=== PATIENT | female | born 1950 | race Caucasian/White ===

== ENCOUNTER → 2018-12-28 | Outpatient (CLI) | payer OTHER ==
--- NOTE | 2018-12-29 16:06 | PATHOLOGY ---
[facility] Accession Number: [id number] . 01 Material submitted: . breast - LEFT BREAST MASS, 10:00, 7CMFN. Modifiers: left, 10:00 . 01 Clinical history: . Left breast mass . 02 Diagnosis: Breast tissue, left breast mass 10:00 needle biopsies: . Fibrocystic changes with the following components: - Cystic change. - Apocrine metaplasia, focally papillary. - Mild duct ectasia, focal. - Stromal fibrosis. LBQ/12/29/2018 . 02 Comment: There is no evidence of malignancy. Please correlate with mammographic findings. (JPM/db; 12/29/2018) . 02 Electronically signed: . Jose Raul Mazariegos MD, Pathologist NPI- [id number] . 01 Gross description: . The specimen is received in formalin, labeled "Xiao Palencia, left breast mass, 10:00, 7 cm from nipple (6 mm)", are few fibrofatty cores and its fragments measuring 1.2 x 0.7 x 0.4 cm in aggregate. The specimen is entirely submitted in A1-A3. Specimen excised at: 1000 on 12/28/18, placed in formalin at: 1000 on 12/25/18, formalin exposure: Approximately 13 hours and 40 minutes. ([facility]; 12/28/2018) SHS/SHS . 02 Pathologist provided ICD-10: N60.12, N60.42, N60.32 . 02 CPT . 744934 Specimen Comment: A courtesy copy of this report has been sent to Specimen Comment: [phone], . Specimen Comment: Report sent to / DR MCINTOSH Performed at: 01 [facility] [place] [id number] [facility] [address], [place], [place] [id number] MD Moshe Velásquez MD Phone: [phone] Performed at: 02 [facility] [address] [place], [place] [id number] MD Jose Raul Mazariegos MD Phone: [phone]
--- NOTE | 2019-01-04 09:17 | RAD ---
Ultrasound-guided left breast biopsy, 12/28/2018: HISTORY: Suspicious left breast nodule Previous studies demonstrated a suspicious nodule at the 10:00 location approximately 7 cm from the nipple. Under local anesthesia, aseptic conditions and sonographic guidance the Emergent One biopsy instrument was passed into the posterior aspect of this lesion via an inferior medial approach. Multiple 12-gauge vacuum-assisted core samples were then obtained. The biopsy marker was deposited the biopsy site. The biopsy instrument was then removed and hemostasis obtained. Two-view postprocedural digital mammograms were then obtained to document position of the biopsy marker. The biopsied nodule is partially obscured by postbiopsy change The patient tolerated the procedure well and left the department in good condition. The subsequent pathology report indicated the presence of fibrocystic change with apocrine metaplasia and no evidence of malignancy. This is considered to be a concordant finding. Follow-up left mammography in 6 months and bilateral mammography at one year is suggested.
== END | disposition home or self-care (01) ==
LOC: US 09:27
PROVIDERS: ATTEND Family Medicine
DX: N60.32 Fibrosclerosis of left breast (principal)
CPT/HCPCS: 19083; 77065; 88305; C1713; 76942